=== PATIENT | female | born 1975 | race Caucasian/White ===

== ENCOUNTER → 2022-07-10 09:18 | Outpatient (BNVA) | payer OTHER, SELFPAY | PROVIDERS: PCP Internal Medicine; Visit Provider Internal Medicine Endocrinology, Diabetes & Metabolism | DX: Z13.89 Encounter for screening for other disorder (principal) ==

== ENCOUNTER 2022-08-17 17:09 | Emergency (ER) | payer OTHER, SELFPAY ==
--- NOTE | ~2022-08-17 | CT_ITS ---
EXAMINATION: CT HEAD WITHOUT CONTRAST CLINICAL INFORMATION: Dizziness COMPARISON: None available. TECHNIQUE: Contiguous axial imaging was performed from the skull base to vertex without intravenous administration of contrast. This CT examination was performed using dose optimization techniques as appropriate, variously including the following: *Automated exposure control *Adjustment of mA and/or kV according to patient size (this includes techniques or standardized protocols for targeted exams where dose is matched to indication/reason for exam; i.e. extremities or head) *Use of iterative reconstruction technique DLP: 817 mGy-cm FINDINGS: There is no evidence of an extra-axial collection. There is no evidence of intra or extra-axial hemorrhage. The ventricles and extra-axial CSF spaces are appropriate. Herrera-white matter differentiation is normal. No mass, mass effect or infarct. Review at bone windows is normal. CT/CT head/brain wo IV con IMPRESSION: Unremarkable exam.
[2022-08-17 17:16] VITALS: BP 128/81; PULSE 78; RESP 16; TEMP 36.7; O2SAT 98; BMI 31.8
--- NOTE | 2022-08-17 17:19 | ECG_ITS ---
Test Reason : DIZZINESS Blood Pressure : / mmHG Vent. Rate : 082 BPM Atrial Rate : 082 BPM P-R Int : 152 ms QRS Dur : 074 ms QT Int : 378 ms P-R-T Axes : 061 071 034 degrees QTc Int : 441 ms Normal sinus rhythm Normal ECG No previous ECGs available Referred By: Yrn Gtz Electronically Signed By:ROCHELLE LACY MD
--- NOTE | 2022-08-17 17:20 | ED.GENADULT ---
HPI - General Adult General Chief complaint: Dizziness <EBEN Peters - Last Filed: 08/24/22 09:34> Stated complaint: vertigo,vomiting <EBEN Peters - Last Filed: 08/24/22 09:34> Time Seen by Provider: 08/17/22 18:10 <EBEN Peters - Last Filed: 08/24/22 09:34> Source: patient, family, RN notes reviewed and old records reviewed <Sridhar oRgers - Last Filed: 08/17/22 19:44> Mode of arrival: ambulatory <Sridhar Rogers - Last Filed: 08/17/22 19:44> Limitations: no limitations <Sridhar Rogers - Last Filed: 08/17/22 19:44> History of Present Illness HPI narrative: 47-year-old female past medical history significant for hypothyroidism presents for evaluation of dizziness Patient reports that her symptoms started last night after having a few alcoholic beverages at a alliance party. She states that this morning her symptoms worsened when she woke up and she has been vomiting 4 times today She states that she has a history of vertigo and this does feel similar as the room is spinning She states that she had 1 episode which she became very sweaty but did not have any chest pain that time She denies any headaches. Her symptoms are slightly improved from the worst that she experienced. She did have runny nose, congestion He does not have any meclizine or and therefore did not take any today. She reports that she did previously have vertigo confirmed with a tilt-table test <Sridhar Rogers - Last Filed: 08/17/22 19:44> Related Data Home medications: Home Medications Medication Instructions Recorded Confirmed cholecalciferol (vitamin D3) 125 125 mcg PO DAILY 07/10/22 mcg (5,000 unit) capsule mecobalamin (vitamin B12) 1,000 1,000 mcg PO DAILY 07/10/22 mcg lozenges tumeric 100 mg-salvatore 150 mg-olive cap PO 07/10/22 50 mg-oreg 150 mg-caprylate capsule Previous Rx's Medication Instructions Recorded levothyroxine 88 mcg tablet 88 mcg PO DAILY #30 tabs 07/10/22 (Synthroid) meclizine 25 mg tablet 25 mg PO TID PRN dizziness #20 tabs 08/17/22 <EBEN Peters - Last Filed: 08/24/22 09:34> Allergies/adverse reactions: Allergies Allergy/AdvReac Type Severity Reaction Status Date / Time ketoprofen Allergy Unknown Rash Verified 07/10/22 09:23 <EBEN Peters - Last Filed: 08/24/22 09:34> Review of Systems Constitutional: Constitutional: Reports as per HPI, Denies chills, Denies fatigue, Denies fever(s) and Denies headache(s) <Sridhar Rogers - Last Filed: 08/17/22 19:44> ENT: Reports vertigo, Reports dizziness and Denies headache(s) <Sridhar Rogers - Last Filed: 08/17/22 19:44> Cardiovascular: Cardiovascular: Denies chest pain and Denies dyspnea <Sridhar Rogers - Last Filed: 08/17/22 19:44> Respiratory: Respiratory: Denies cough and Denies dyspnea <Sridhar Rogers - Last Filed: 08/17/22 19:44> Gastrointestinal: Gastrointestinal: Denies abdominal pain and Denies constipation <Sridhar Rogers - Last Filed: 08/17/22 19:44> Genitourinary: Genitourinary: Denies dysuria <Sridhar Rogers - Last Filed: 08/17/22 19:44> Neurologic: Reports vertigo, Reports dizziness, Denies headache(s) and Denies focal weakness <Sridhar Rogers - Last Filed: 08/17/22 19:44> Endocrine: Endocrine: Denies fatigue <Sridhar Rogers - Last Filed: 08/17/22 19:44> [facility] Past Medical History Medical History: Medical History (Updated 08/18/22 @ 00:01 by Reny Hernandez) Hypothyroidism <EBEN Peters - Last Filed: 08/24/22 09:34> Surgical History: Surgical History (Updated 07/10/22 @ 09:54 by DELISA Ernst) History of section Hx of cholecystectomy <EBEN Peters - Last Filed: 08/24/22 09:34> Family History Family History: Family History (Updated 07/10/22 @ 09:25 by DELISA Ernst) Mother High blood pressure Breast cancer Father High blood pressure Prediabetes <EBEN Peters - Last Filed: 08/24/22 09:34> Social History Social History: Social History (Updated 07/10/22 @ 09:25 by DELISA Ernst) Alcohol intake: never Patient Tobacco Use Status: Never used Tobacco Advance Directives: No Advance Directives Information Provided: No <EBEN Peters - Last Filed: 08/24/22 09:34> Physical Exam ED Vital Signs: Vital Signs - 24 hr 08/17/22 17:16 Temperature 98.0 F Pulse Rate 78 Respiratory Rate 16 Blood Pressure 128/81 Pulse Oximetry 98 Oxygen Delivery Method Room Air BMI result Body Mass Index 31.8 <EBEN Peters - Last Filed: 08/24/22 09:34> Vital Signs - 24 hr 08/17/22 17:16 Temperature 98.0 F Pulse Rate 78 Respiratory Rate 16 Blood Pressure 128/81 Pulse Oximetry 98 Oxygen Delivery Method Room Air BMI result Body Mass Index 31.8 <Sridhar Rogers - Last Filed: 08/17/22 19:44> Const General: healthy appearing, comfortable, no acute distress, alert and awake <Sridhar Rogers - Last Filed: 08/17/22 19:44> Nutritional Appearance: well nourished <Sridhar Rogers - Last Filed: 08/17/22 19:44> Orientation/consciousness: patient oriented x3 <Sridhar Rogers - Last Filed: 08/17/22 19:44> HENIL Head: Yes normocephalic and Yes atraumatic <Sridhar Rogers - Last Filed: 08/17/22 19:44> Throat: Yes posterior oropharynx normal <Sridhar Rogers - Last Filed: 08/17/22 19:44> Eyes Eyelids: Yes eyelids normal <Sridhar Rogers - Last Filed: 08/17/22 19:44> Conjunctivae: conjunctivae normal <Sridhar Rogers - Last Filed: 08/17/22 19:44> Sclerae: sclerae normal <Sridhar Rogers - Last Filed: 08/17/22 19:44> Corneas: corneas normal < Last Filed: 08/17/22 19:44> Pupils: Equal, round and reactive pupils present < Last Filed: 08/17/22 19:44> EOM: EOMs intact bilaterally < Last Filed: 08/17/22 19:44> Neck Neck: Yes full ROM < Last Filed: 08/17/22 19:44> Resp Effort & Inspection: normal respiratory effort, able to speak in complete sentences, no audible wheezes and not labored < Last Filed: 08/17/22 19:44> Auscultation: clear to auscultation bilaterally < Last Filed: 08/17/22 19:44> Cardio Rate: regular rate < Last Filed: 08/17/22 19:44> Rhythm: regular rhythm < Last Filed: 08/17/22 19:44> GI Inspection: No distended < Last Filed: 08/17/22 19:44> Palpation (GI): Soft to palpation, not firm, nontender, no guarding and not rigid < Last Filed: 08/17/22 19:44> Auscultation: normoactive bowel sounds < Last Filed: 08/17/22 19:44> Skin General skin exam: no rashes or lesions noted and elasticity normal < Last Filed: 08/17/22 19:44> Neuro General: patient oriented x3 < Last Filed: 08/17/22 19:44> Cranial nerves: Yes CN's II-XII intact bilaterally, Yes Equal, round and reactive pupils present and Yes Bilaterally intact EOM present < Last Filed: 08/17/22 19:44> Cognition (Neuro): normal cognition < Last Filed: 08/17/22 19:44> Coordination: suantc-rh-dyny test normal, dzbe-jx-spcz test normal, Romberg test negative and Normal rapid alternating movements of the distal upper extremity present (Neuro) <Sridhar Rogers - Last Filed: 08/17/22 19:44> Extrem Other: Moving all extremities well without any obvious deformities <Sridhar Rogers - Last Filed: 08/17/22 19:44> Course Course Course Narrative: RME: 47 yold female with pmh of Vertigo presents to the ED for dizziness described as room spinning and also had moment of diaporhesis. denies any slurred speech, facial droop, paralysis of extremities, or loss of vission. negative for any neuro deficits on exam. labs, EKG, and head CT ordered. She states cousin had ME at 26. NIH score 0. normal gait. <EBEN Peters - Last Filed: 08/24/22 09:34> Reevaluation(s) Reevaluation #1: Patient's workup was unremarkable, this included labs, EKG, CT scan, UA. I reassessed the patient and she is no longer dizzy. Again this was likely classic peripheral vertigo. We will discharge the patient home with meclizine <Sridhar Rogers - Last Filed: 08/17/22 19:44> Time: 19:40 <Sridhar Rogers - Last Filed: 08/17/22 19:44> Medications Administered Discontinued Medications Generic Name Dose Route Start Last Admin Trade Name Freq PRN Reason Stop Dose Admin Sodium Chloride 1,000 mls @ 999 mls/hr 08/17/22 18:30 08/17/22 18:49 Ns IV 08/17/22 19:30 999 mls/hr .Q1H1M EMRE Administration Meclizine HCl 50 mg 08/17/22 17:57 08/17/22 18:11 Meclizine Hcl 25 Mg Tablet PO 08/17/22 17:58 50 mg ONCE ONE Administration <EBEN Peters - Last Filed: 08/24/22 09:34> Medications Administered Discontinued Medications Generic Name Dose Route Start Last Admin Trade Name Freq PRN Reason Stop Dose Admin Sodium Chloride 1,000 mls @ 999 mls/hr 08/17/22 18:30 08/17/22 18:49 Ns IV 08/17/22 19:30 999 mls/hr .Q1H1M EMRE Administration Meclizine HCl 50 mg 08/17/22 17:57 08/17/22 18:11 Meclizine Hcl 25 Mg Tablet PO 08/17/22 17:58 50 mg ONCE ONE Administration <Sridhar Rogers - Last Filed: 08/17/22 19:44> Medical Decision Making Medical Decision Making MDM Narrative: 47-year-old female with history of vertigo presents for evaluation of dizziness which she describes as room spinning. History and negative cerebellar exam, this most likely is peripheral vertigo. The 3 with IV fluids and meclizine. Will get a cardiac workup was the patient reports diaphoresis which is atypical of her previous episodes of vertigo <Sridhar Rogers - Last Filed: 08/17/22 19:44> Differential Diagnosis Vertigo Dizziness Orthostasis Posterior CVA less likely <Sridhar Rogers - Last Filed: 08/17/22 19:44> Lab Data Result Diagrams: 08/17/22 18:03 08/17/22 18:03 <EBEN Peters - Last Filed: 08/24/22 09:34> Labs: Lab Results 08/17/22 08/17/22 08/17/22 Range/Units 18:03 18:03 18:03 WBC 9.7 (4.8-10.8) X10*3/uL RBC 4.65 (4.20-5.50) X10*6/uL Hgb 12.3 (12.0-16.0) g/dl Hct 38.3 (37.0-47.0) % MCV 82.4 (80.0-98.0) fL MCH 26.5 L (27.0-33.0) pg MCHC 32.1 (31.0-35.0) g/dl RDW 15.8 (11.0-16.0) % Plt Count 373 (160-400) X10*3/uL MPV 10.2 (9.4-12.3) fL Immature Gran % (Auto) 0.3 (0.0-0.4) % Neut % (Auto) 78.7 H (45-73) % Lymph % (Auto) 15.8 L (20-40) % [place] % (Auto) 4.7 (2-11) % Eos % (Auto) 0.3 (0-4) % Baso % (Auto) 0.2 (0-2) % Lymph # (Auto) 1.5 (1.2-4.9) X10*3/uL [place] # (Auto) 0.5 (0.1-1.2) X10*3/uL Eos # (Auto) 0.0 (0.0-0.4) X10*3/uL Baso # (Auto) 0.0 (0.0-0.2) X10*3/uL Abs Immat Gran (auto) 0.03 (0.00-0.03) X10*3/uL Absolute Neuts (auto) 7.6 (2.0-8.3) x10*3/uL Absolute Nucleated RBC 0.000 (0.0-0.012) X10*3/uL Nucleated RBC % (auto) 0.0 (0.0-0.2) /100WBC PT (10.0-13.1) SEC INR (0.9-1.1) APTT (26.0-36.4) SEC Sodium 141 (135-145) mmol/L Potassium 4.4 (3.3-5.1) mmol/L Chloride 108 (96-108) mmol/L Carbon Dioxide 26 (22-29) mmol/L Anion Gap 11 L (12-20) BUN 8 L (9-16) mg/dL Creatinine 0.78 (0.5-1.4) mg/dL Estim Creat Clear Calc 89.3 Estimated GFR > 60 Random Glucose 100 (60-115) mg/dL Calcium 9.5 (8.4-10.2) mg/dL Total Bilirubin 0.5 (0.0-1.0) mg/dL AST 14 (5-31) U/L ALT 13 (0-31) U/L Alkaline Phosphatase 87 (39-117) U/L Troponin I High Sens < 2.7 (<3.5-17.0) ng/L Total Protein 7.3 (6.5-8.0) g/dL Albumin 4.2 (3.5-5.0) g/dL Beta HCG, Quant < 2 mIU/mL Urine Color Urine Appearance Urine pH (5.0-9.0) Ur Specific [place] (1.005-1.025) Urine Protein (Neg-Trace) mg/dL Urine Glucose (UA) (Negative) mg/dL Urine Ketones (Negative) mg/dL Urine Blood (Negative) Urine Nitrite (Negative) Ur Leukocyte Esterase (Negative) 08/17/22 08/17/22 Range/Units 18:03 18:39 WBC (4.8-10.8) X10*3/uL RBC (4.20-5.50) X10*6/uL Hgb (12.0-16.0) g/dl Hct (37.0-47.0) % MCV (80.0-98.0) fL MCH (27.0-33.0) pg MCHC (31.0-35.0) g/dl RDW (11.0-16.0) % Plt Count (160-400) X10*3/uL MPV (9.4-12.3) fL Immature Gran % (Auto) (0.0-0.4) % Neut % (Auto) (45-73) % Lymph % (Auto) (20-40) % [place] % (Auto) (2-11) % Eos % (Auto) (0-4) % Baso % (Auto) (0-2) % Lymph # (Auto) (1.2-4.9) X10*3/uL [place] # (Auto) (0.1-1.2) X10*3/uL Eos # (Auto) (0.0-0.4) X10*3/uL Baso # (Auto) (0.0-0.2) X10*3/uL Abs Immat Gran (auto) (0.00-0.03) X10*3/uL Absolute Neuts (auto) (2.0-8.3) x10*3/uL Absolute Nucleated RBC (0.0-0.012) X10*3/uL Nucleated RBC % (auto) (0.0-0.2) /100WBC PT 11.5 (10.0-13.1) SEC INR 1.0 (0.9-1.1) APTT 27.7 (26.0-36.4) SEC Sodium (135-145) mmol/L Potassium (3.3-5.1) mmol/L Chloride (96-108) mmol/L Carbon Dioxide (22-29) mmol/L Anion Gap (12-20) BUN (9-16) mg/dL Creatinine (0.5-1.4) mg/dL Estim Creat Clear Calc Estimated GFR Random Glucose (60-115) mg/dL Calcium (8.4-10.2) mg/dL Total Bilirubin (0.0-1.0) mg/dL AST (5-31) U/L ALT (0-31) U/L Alkaline Phosphatase (39-117) U/L Troponin I High Sens (<3.5-17.0) ng/L Total Protein (6.5-8.0) g/dL Albumin (3.5-5.0) g/dL Beta HCG, Quant mIU/mL Urine Color Yellow Urine Appearance Clear Urine pH 8.5 (5.0-9.0) Ur Specific [place] 1.015 (1.005-1.025) Urine Protein Negative (Neg-Trace) mg/dL Urine Glucose (UA) Negative (Negative) mg/dL Urine Ketones Trace (Negative) mg/dL Urine Blood Negative (Negative) Urine Nitrite Negative (Negative) Ur Leukocyte Esterase Negative (Negative) <EBEN Peters - Last Filed: 08/24/22 09:34> Lab Results 08/17/22 08/17/22 08/17/22 Range/Units 18:03 18:03 18:03 WBC 9.7 (4.8-10.8) X10*3/uL RBC 4.65 (4.20-5.50) X10*6/uL Hgb 12.3 (12.0-16.0) g/dl Hct 38.3 (37.0-47.0) % MCV 82.4 (80.0-98.0) fL MCH 26.5 L (27.0-33.0) pg MCHC 32.1 (31.0-35.0) g/dl RDW 15.8 (11.0-16.0) % Plt Count 373 (160-400) X10*3/uL MPV 10.2 (9.4-12.3) fL Immature Gran % (Auto) 0.3 (0.0-0.4) % Neut % (Auto) 78.7 H (45-73) % Lymph % (Auto) 15.8 L (20-40) % [place] % (Auto) 4.7 (2-11) % Eos % (Auto) 0.3 (0-4) % Baso % (Auto) 0.2 (0-2) % Lymph # (Auto) 1.5 (1.2-4.9) X10*3/uL [place] # (Auto) 0.5 (0.1-1.2) X10*3/uL Eos # (Auto) 0.0 (0.0-0.4) X10*3/uL Baso # (Auto) 0.0 (0.0-0.2) X10*3/uL Abs Immat Gran (auto) 0.03 (0.00-0.03) X10*3/uL Absolute Neuts (auto) 7.6 (2.0-8.3) x10*3/uL Absolute Nucleated RBC 0.000 (0.0-0.012) X10*3/uL Nucleated RBC % (auto) 0.0 (0.0-0.2) /100WBC PT (10.0-13.1) SEC INR (0.9-1.1) APTT (26.0-36.4) SEC Sodium 141 (135-145) mmol/L Potassium 4.4 (3.3-5.1) mmol/L Chloride 108 (96-108) mmol/L Carbon Dioxide 26 (22-29) mmol/L Anion Gap 11 L (12-20) BUN 8 L (9-16) mg/dL Creatinine 0.78 (0.5-1.4) mg/dL Estim Creat Clear Calc 89.3 Estimated GFR > 60 Random Glucose 100 (60-115) mg/dL Calcium 9.5 (8.4-10.2) mg/dL Total Bilirubin 0.5 (0.0-1.0) mg/dL AST 14 (5-31) U/L ALT 13 (0-31) U/L Alkaline Phosphatase 87 (39-117) U/L Troponin I High Sens < 2.7 (<3.5-17.0) ng/L Total Protein 7.3 (6.5-8.0) g/dL Albumin 4.2 (3.5-5.0) g/dL Beta HCG, Quant < 2 mIU/mL Urine Color Urine Appearance Urine pH (5.0-9.0) Ur Specific [place] (1.005-1.025) Urine Protein (Neg-Trace) mg/dL Urine Glucose (UA) (Negative) mg/dL Urine Ketones (Negative) mg/dL Urine Blood (Negative) Urine Nitrite (Negative) Ur Leukocyte Esterase (Negative) 08/17/22 08/17/22 Range/Units 18:03 18:39 WBC (4.8-10.8) X10*3/uL RBC (4.20-5.50) X10*6/uL Hgb (12.0-16.0) g/dl Hct (37.0-47.0) % MCV (80.0-98.0) fL MCH (27.0-33.0) pg MCHC (31.0-35.0) g/dl RDW (11.0-16.0) % Plt Count (160-400) X10*3/uL MPV (9.4-12.3) fL Immature Gran % (Auto) (0.0-0.4) % Neut % (Auto) (45-73) % Lymph % (Auto) (20-40) % [place] % (Auto) (2-11) % Eos % (Auto) (0-4) % Baso % (Auto) (0-2) % Lymph # (Auto) (1.2-4.9) X10*3/uL [place] # (Auto) (0.1-1.2) X10*3/uL Eos # (Auto) (0.0-0.4) X10*3/uL Baso # (Auto) (0.0-0.2) X10*3/uL Abs Immat Gran (auto) (0.00-0.03) X10*3/uL Absolute Neuts (auto) (2.0-8.3) x10*3/uL Absolute Nucleated RBC (0.0-0.012) X10*3/uL Nucleated RBC % (auto) (0.0-0.2) /100WBC PT 11.5 (10.0-13.1) SEC INR 1.0 (0.9-1.1) APTT 27.7 (26.0-36.4) SEC Sodium (135-145) mmol/L Potassium (3.3-5.1) mmol/L Chloride (96-108) mmol/L Carbon Dioxide (22-29) mmol/L Anion Gap (12-20) BUN (9-16) mg/dL Creatinine (0.5-1.4) mg/dL Estim Creat Clear Calc Estimated GFR Random Glucose (60-115) mg/dL Calcium (8.4-10.2) mg/dL Total Bilirubin (0.0-1.0) mg/dL AST (5-31) U/L ALT (0-31) U/L Alkaline Phosphatase (39-117) U/L Troponin I High Sens (<3.5-17.0) ng/L Total Protein (6.5-8.0) g/dL Albumin (3.5-5.0) g/dL Beta HCG, Quant mIU/mL Urine Color Yellow Urine Appearance Clear Urine pH 8.5 (5.0-9.0) Ur Specific [place] 1.015 (1.005-1.025) Urine Protein Negative (Neg-Trace) mg/dL Urine Glucose (UA) Negative (Negative) mg/dL Urine Ketones Trace (Negative) mg/dL Urine Blood Negative (Negative) Urine Nitrite Negative (Negative) Ur Leukocyte Esterase Negative (Negative) <Sridhar Rogers - Last Filed: 08/17/22 19:44> Independent Interpretation I performed an independent interpretation of an: EKG (Sinus rhythm at a rate of 82 beats per minute. No ischemia) <Sridhar Rogers - Last Filed: 08/17/22 19:44> Discharge Plan Discharge Clinical Impression: Benign paroxysmal positional vertigo <EBEN Peters - Last Filed: 08/24/22 09:34> Patient Disposition: Home, Self-Care <EBEN Peters - Last Filed: 08/24/22 09:34> Instructions: Vertigo (ED) <EBEN Peters - Last Filed: 08/24/22 09:34> Additional Instructions: Your workup in the emergency department today was reassuring. This includes or CT scan, blood work, EKG and urine sample Your symptoms were most likely attributed to classic vertigo Take meclizine as needed for any recurrence of symptoms You may return for new or worsening symptoms, especially if the meclizine does not help <EBEN Peters - Last Filed: 08/24/22 09:34> Prescriptions: New meclizine 25 mg tablet 25 mg PO TID PRN (Reason: dizziness) Qty: 20 0RF No Action levothyroxine [Synthroid] 88 mcg tablet 88 mcg PO DAILY Qty: 30 4RF cholecalciferol (vitamin D3) 125 mcg (5,000 unit) capsule 125 mcg PO DAILY mecobalamin (vitamin B12) 1,000 mcg lozenge 1,000 mcg PO DAILY Rx Instructions: allow to dissolve in mouth OR may chew lightly before swallowing ifetvcj-yrfv-kudry-oreg-capryl 100 mg-150 mg- 50 mg-150 mg capsule PO <EBEN Peters - Last Filed: 08/24/22 09:34> Stand Alone Forms: Work/School Release <EBEN Peters - Last Filed: 08/24/22 09:34> Interventions: ED Discharge Assessment Last Done: 08/17/22 20:27 <EBEN Peters - Last Filed: 08/24/22 09:34> Discharge Date/Time: 08/17/22 20:30 <EBEN Peters - Last Filed: 08/24/22 09:34>
[2022-08-17] MEDS: Meclizine HCl 25 MG TABLET 50 MG PO (18:11)
[2022-08-17 18:15] LABS: MANUAL DIFF FLAG NO
[2022-08-17 18:16] LABS: Basophils Percent Auto 0.2 % (0-2); Eosinophils Percent Auto 0.3 % (0-4); Hematocrit 38.3 % (37.0-47.0); Hemoglobin 12.3 g/dl (12.0-16.0); Imm Gran Abs Auto 0.03 X10*3/uL (0.00-0.03); Imm Gran Pct Auto 0.3 % (0.0-0.4); Lymphocytes Absolute Auto 1.5 X10*3/uL (1.2-4.9); Lymphocytes Percent Auto 15.8 % (20-40); Mean Corpuscular HGB Conc 32.1 g/dl (31.0-35.0); Mean Corpuscular Hemoglobin 26.5 pg (27.0-33.0); Mean Corpuscular Volume 82.4 fL (80.0-98.0); Mean Platelet Volume 10.2 fL (9.4-12.3); Monocytes Absolute Auto 0.5 X10*3/uL (0.1-1.2); Monocytes Percent Auto 4.7 % (2-11); Neutrophils Absolute Auto 7.6 x10*3/uL (2.0-8.3); Neutrophils Percent Auto 78.7 % (45-73); Platelet Count 373 X10*3/uL (160-400); Red Blood Count 4.65 X10*6/uL (4.20-5.50); Red Cell Distribution Width 15.8 % (11.0-16.0); White Blood Count 9.7 X10*3/uL (4.8-10.8)
[2022-08-17 18:21] LABS: Prothrombin Time 11.5 SEC (10.0-13.1)
[2022-08-17 18:24] LABS: Partial Thromboplastin Time 27.7 SEC (26.0-36.4)
[2022-08-17 18:49] LABS: Alanine Aminotransferase 13 U/L (0-31); Albumin Level 4.2 g/dL (3.5-5.0); Alkaline Phosphatase 87 U/L (39-117); Anion Gap 11 (12-20); Aspartate Amino Transferase 14 U/L (5-31); Bilirubin Total 0.5 mg/dL (0.0-1.0); Blood Urea Nitrogen 8 mg/dL (9-16); Calcium 9.5 mg/dL (8.4-10.2); Carbon Dioxide 26 mmol/L (22-29); Chloride 108 mmol/L (96-108); Creatinine Clr Calc Pharmacy 89.3; Estimated Glomerular Filt Rate > 60; Glucose Random 100 mg/dL (60-115); Potassium 4.4 mmol/L (3.3-5.1); Sodium 141 mmol/L (135-145); Total Protein 7.3 g/dL (6.5-8.0)
[2022-08-17] MEDS: 0.9 % Sodium Chloride 1,000 ML 999 ML IV (18:49)
[2022-08-17 18:51] LABS: HCG Quantitative < 2 mIU/mL; Troponin-I High Sensitivity < 2.7 ng/L (<3.5-17.0)
[2022-08-17 19:01] LABS: Appearance Urine Clear; Color Urine Yellow; Glucose Urine UA Negative (Negative); Leukocyte Esterase Urine Negative (Negative); Nitrite Urine Negative (Negative); PH 8.5 (5.0-9.0); Specific Gravity - Urine 1.015 (1.005-1.025); Urine Blood Negative (Negative); Urine Ketones Trace mg/dL (Negative); Urine Protein Negative (Neg-Trace)
== END 2022-08-17 20:30 | disposition home or self-care (01) ==
PROVIDERS: Physician Assistant; Emergency Provider Student in an Organized Health Care Education/Training Program
DX: H81.13 Benign paroxysmal vertigo, bilateral (principal); R11.10 Vomiting, unspecified; R09.81 Nasal congestion; R61 Generalized hyperhidrosis; Z79.899 Other long term (current) drug therapy
CPT/HCPCS: 36415; 70450; 80053; 81003; 84484; 84702; 85025; 85610; 85730; 93005; 99284

== ENCOUNTER 2022-08-31 08:10 | Outpatient (REF) | payer OTHER, SELFPAY ==
[2022-08-31 11:18] LABS: Free T4 (Free Thyroxine) 1.08 ng/dL (0.71-1.85); Thyroid Stimulating Hormone 0.43 uIU/mL (0.32-4.0)
== END 2022-08-31 08:11 | disposition home or self-care (01) ==
LOC: HO.10HDL 08:10
PROVIDERS: Visit Provider Internal Medicine Endocrinology, Diabetes & Metabolism
DX: E03.9 Hypothyroidism, unspecified (principal)
CPT/HCPCS: 36415; 84439; 84443

== ENCOUNTER 2022-12-31 07:55 | Outpatient (REF) | payer OTHER, SELFPAY ==
[2022-12-31 11:26] LABS: Free T4 (Free Thyroxine) 1.01 ng/dL (0.71-1.85); Thyroid Stimulating Hormone 1.53 uIU/mL (0.32-4.0)
== END 2022-12-31 07:56 | disposition home or self-care (01) ==
LOC: HO.10HDL 07:55
PROVIDERS: Visit Provider Internal Medicine Endocrinology, Diabetes & Metabolism
DX: E03.9 Hypothyroidism, unspecified (principal)
CPT/HCPCS: 36415; 84439; 84443

== ENCOUNTER 2023-01-12 08:09 | Outpatient (AMB) | payer OTHER, SELFPAY ==
--- NOTE | 2023-01-12 08:12 | A.OFFVIS_ITS ---
Intake Vital Signs 01/12/23 08:14 Height 5 ft 3 in Weight 184 lb 8.43 oz BMI 32.7 BP 112/74 Blood Pressure Location Rt brachial Position Sitting Pulse 91 Pulse Source Pulse Oximeter Intake Visit Reasons: Hypothyroidism/LVM Intake Note: Patient present for Hypothyroidism follow up visit. 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 First diagnosed with Hypothyroidism age 11 -12 with labs revealing elevated TSH. Was using thyroid hormone 88 ug . Denies fatigue, +weight gain, -cold intolerance, +dry skin,- hair loss, - constipation. There is no hx of hyperlipidemia . Denies obstructive sx of goiter . Denies consuming any kelp or seaweed. Denies taking amiodarone. Denies current or desiring to become in near future. nl menses Biotin: No Labs: [facility] Medical History (Updated 08/18/22 @ 00:01 by Reny Hernandez) Hypothyroidism Surgical History History of section Hx of cholecystectomy Family History Mother High blood pressure Breast cancer Father High blood pressure Prediabetes Social History Alcohol intake: never Patient Tobacco Use Status: Never used Tobacco Physical Exam Vital Signs: Last Vital Signs Pulse 91 01/12/23 08:14 BP 112/74 01/12/23 08:14 BMI result Body Mass Index 32.7 HEENT reveals absence of lid lag , stare or proptosis or eyebrow loss. Thyroid gland measure 15 gms . No nodules or tenderness palpated. There is no cervical adenopathy palpated. Lungs CTA. Heart S1, S2 Reg R/R -M/R/G. Abdominal exam benign. Skin exam reveals absence of dryness or thyroid dermopathy or vitiligo. Nail exam reveals absence of thyroid acropachy or oncholysis. Neurologic exam reveals 2+ reflexes . Muscle Strength is 5/5 proximally. There are no tremors in upper extremities. 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 She appears to be clinically and biochemically euthyroid Plan is to continue the current therapy. Orders: Orders Free T4 (Free Thyroxine) 12/31/22 E03.9 - Hypothyroidism, unspecified Thyroid Stimulating Hormone 12/31/22 E03.9 - Hypothyroidism, unspecified Coding Level of Care Code Est Pt Level 3 (34338) Diagnoses Hypothyroidism E03.9
[2023-01-12 08:14] VITALS: BP 112/74; PULSE 91; BMI 32.7
== END 2023-01-12 08:30 | disposition home or self-care (01) ==
PROVIDERS: Visit Provider Internal Medicine Endocrinology, Diabetes & Metabolism
DX: E03.9 Hypothyroidism, unspecified (principal)
CPT/HCPCS: 99213

== ENCOUNTER → 2023-01-12 08:09 | Outpatient (BNVA) | payer OTHER, SELFPAY | PROVIDERS: Visit Provider Internal Medicine Endocrinology, Diabetes & Metabolism | DX: E03.9 Hypothyroidism, unspecified (principal) ==

== ENCOUNTER 2024-01-13 16:30 | Outpatient (REF) | payer OTHER, SELFPAY ==
[2024-01-13 17:59] LABS: Free T4 (Free Thyroxine) 0.98 ng/dL (0.71-1.85); Thyroid Stimulating Hormone 1.36 uIU/mL (0.32-4.0)
== END 2024-01-13 16:31 | disposition home or self-care (01) ==
LOC: HO.LAB 16:30
PROVIDERS: PCP Internal Medicine; Visit Provider Internal Medicine Endocrinology, Diabetes & Metabolism
DX: E03.9 Hypothyroidism, unspecified (principal)
CPT/HCPCS: 36415; 84439; 84443

== ENCOUNTER 2024-01-18 08:12 | Outpatient (AMB) | payer OTHER, SELFPAY ==
--- NOTE | 2024-01-18 08:13 | MHC.OFFVIS ---
Vital Signs 01/18/24 08:15 Height 5 ft 3 in Weight 205 lb 4.006 oz BMI 36.4 BP 112/72 Blood Pressure Location Rt brachial Position Sitting Pulse 91 Pulse Source Pulse Oximeter Intake Visit Reasons: f/u hypothyroidism-conf Intake Note: Patient present today for Hypothyroidism follow up. Fixture Relamper Required: No Accompanied by: Mother Allergies ketoprofen Allergy (Unknown, Verified 01/18/24 08:16) Rash Medication List - Last Reconciled 01/18/24 by Juan Francisco Rodriguez MD cholecalciferol (vitamin D3) 125 mcg PO DAILY levothyroxine (Synthroid) 88 mcg PO DAILY meclizine 25 mg PO TID PRN mecobalamin (vitamin B12) 1,000 mcg PO DAILY multivitamin 1 tab PO QAM HPI Comments Details: 48 YO F with who is seen in consultation at the request of his PCP for Hyothyroidism. First diagnosed with Hypothyroidism age 11 -12 with labs revealing elevated TSH. Was using thyroid hormone 88 ug . Denies fatigue, +weight gain, -cold intolerance, +dry skin,- hair loss, -constipation. There is no hx of hyperlipidemia . Denies obstructive sx of goiter . Denies consuming any kelp or seaweed. Denies taking amiodarone. Denies current or desiring to become in near future. nl menses Biotin: No Labs: [facility] Medical History (Updated 08/18/22 @ 00:01 by Reny Hernandez) Hypothyroidism Surgical History History of section Hx of cholecystectomy Family History Mother High blood pressure Breast cancer Father High blood pressure Prediabetes Social History Alcohol intake: never Patient Tobacco Use Status: Never used Tobacco Physical Exam HEENT reveals absence of lid lag , stare or proptosis or eyebrow loss. Thyroid gland measure 15 gms . No nodules or tenderness palpated. There is no cervical adenopathy palpated. Lungs CTA. Heart S1, S2 Reg R/R -M/R/G. Abdominal exam benign. Skin exam reveals absence of dryness or thyroid dermopathy or vitiligo. Nail exam reveals absence of thyroid acropachy or oncholysis. Neurologic exam reveals 2+ reflexes . Muscle Strength is 5/5 proximally. There are no tremors in upper extremities. 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 She appears to be clinically and biochemically euthyroid Plan is to continue the current therapy. At this point, patient can follow up with her primary care provider and returned back to endocrinology as needed Coding Level of Care Code Est Pt Level 3 (52924) Diagnoses Hypothyroidism E03.9
[2024-01-18 08:15] VITALS: BP 112/72; PULSE 91; BMI 36.4
== END 2024-01-18 08:36 | disposition home or self-care (01) ==
PROVIDERS: Visit Provider Internal Medicine Endocrinology, Diabetes & Metabolism
DX: E03.9 Hypothyroidism, unspecified (principal)
CPT/HCPCS: 99213

== ENCOUNTER → 2024-01-18 08:12 | Outpatient (BNVA) | payer OTHER, SELFPAY | PROVIDERS: Visit Provider Internal Medicine Endocrinology, Diabetes & Metabolism ==